=== PATIENT | male | born 1950 | race Caucasian/White ===

== ENCOUNTER 2017-01-05 14:32 | Outpatient (CLI) | payer OTHER | END 2017-01-05 14:33 | disposition home or self-care (01) | LOC: NC 14:32 | PROVIDERS: ATTEND Family Medicine | DX: E11.9 Type 2 diabetes mellitus without complications (principal); Z71.3 Dietary counseling and surveillance; Z68.25 Body mass index [BMI] 25.0-25.9, adult; I10 Essential (primary) hypertension; K21.9 Gastro-esophageal reflux disease without esophagitis ==